=== PATIENT | female | born 1985 | race Caucasian/White ===

== ENCOUNTER 2024-08-15 19:38 | Emergency (ER) | payer OTHER, SELFPAY ==
[2024-08-15] VITALS (18 sets, daily range): BP systolic 104–135; BP diastolic 78–107; PULSE 86–110; RESP 15–27; TEMP 36.7; O2SAT 16–100
--- NOTE | ~2024-08-15 | CT_ITS ---
EXAMINATION: CT brain wo con DATE: 08/15/2024 20:00 INDICATION: SYNCOPE/HIT POSTERIOR HEAD . TECHNIQUE: Computed tomography (CT) of the head was performed without intravenous contrast. The mA wa s adjusted according to patient size. Iterative reconstruction technique was employed. The dose-lengt h product was 605.33 mGy-cm. COMPARISON: None. FINDINGS: No acute intracranial hemorrhage or extra-axial fluid collection. No hydrocephalus, mass, or herniation. No acute ischemic infarct. Unremarkable dural venous sinus attenuation. No acute osseous abnormality. The aerated spaces are clear. IMPRESSION: No acute intracranial process. Reviewed, dictated and finalized at location K.
--- NOTE | 2024-08-15 19:43 | ECG_ITS ---
Test Date: 2024-08-15 20:21:54 Measurements Intervals [place] Rate: 99 P: 67 MS: 158 QRS: 53 QRSD: 90 T: 60 QT: 329 QTc: 422 Interpretive Statements SINUS RHYTHM WITH SINUS ARRHYTHMIA NORMAL ECG No previous ECG available for comparison Electronically Signed On 08-16-2024 05:37:56 CDT by Ryan Anderson D.O.
--- NOTE | 2024-08-15 19:49 | ED.OVERDOSE ---
HPI - Overdose General Chief Complaint: Overdose Stated Complaint: overdose Time Seen by Provider: 08/15/24 19:42 History of Present Illness HPI Narrative: Pt may have taken handful of hydroxizine or possible abilify. Pt is homeless and lives in [place] in a tent. Not sure why she is in [place]. Pt says she fell backward and struck head and may have gotten knocked out. Pt recently lost her grandchild and says she took the medicine to try to make the thoughts of his go away but was not trying to kill herself. Pt takes suboxone. Has taken fentanyl and meth. Related Data Home Medications Medication Instructions Recorded Confirmed buprenorphine 12 mg-naloxone 3 mg 12 film sublingual DAILY 08/15/24 08/15/24 sublingual film (Suboxone) naloxone 4 mg/actuation nasal spray 4 mg intranasal 08/15/24 Allergies Allergy/AdvReac Type Severity Reaction Status Date / Time OPIATES Allergy Severe Siezure Uncoded 08/15/24 22:37 Review of Systems Review of Systems: All systems reviewed & are unremarkable except as noted in HPI and below PMFSH Social History Social History Substance use type: marijuana, heroin, opiates, methamphetamine and prescription drug Exam Const: General: no acute distress Nutritional Appearance: well nourished Orientation/consciousness: patient oriented x3 Limitations: no limitations HENMT: Head: normal to inspection Mouth: Yes Normal oral and palatal mucosa present Eyes: Pupils: Equal, round and reactive pupils present EOM: EOMs intact bilaterally Neck: Neck: normal visual inspection Resp: Effort & Inspection: normal respiratory effort Auscultation: clear to auscultation bilaterally Cardio: Rate: regular rate Rhythm: regular rhythm GI: GI Palp: Yes Soft to palpation Auscultation: normal bowel sounds Skin: General skin exam: normal color Rashes: no rashes Wounds: no wounds Neuro: General: patient oriented x3, moves all extremities, no meningeal signs, no focal motor deficits and CN's II-XI intact bilaterally Cranial nerves: Yes Nystagmus not present Speech: normal speech Extrem: General: normal to inspection and no clubbing, cyanosis or edema Psych: Mental Status: mental status grossly normal Affect: normal affect Attitude: cooperative Course Vital Signs Vital signs: Vital Signs Respiratory Rate 18 08/15/24 19:38 Temperature 98.1 F 08/15/24 19:40 Pulse Rate 82 08/16/24 00:24 Respiratory Rate 19 08/16/24 00:24 Blood Pressure 114/88 08/16/24 00:24 Pulse Oximetry 99 08/16/24 00:24 Oxygen Delivery Room Air 08/16/24 00:24 MDM - Overdose MDM Narrative Medical decision making narrative: pt took handfuol of hydroxizine and maybe a couple of abilify. denies SI. Will do tox labs and ekg and call poison control. Poison control recommends supportive care and observation for 8 hrs for medical clearance. Will observe here for 8 hrs. Pt medically lceared at 0330. [facility] cleared for discharge Differential Diagnosis Differential diagnosis: Likely drug overdose Lab Data 08/15/24 19:53 08/15/24 19:53 Labs: Lab Results 08/15/24 08/15/24 Range/Units 19:53 20:11 WBC 8.2 (4.8-10.8) K/mm3 RBC 4.03 L (4.20-5.40) M/mm3 Hgb 12.3 (12.0-15.0) g/dL Hct 35.7 (35.0-49.0) % MCV 88.6 (78.0-102.0) fL MCH 30.5 (27.0-31.0) pg MCHC 34.5 (32-36) g/dL RDW 11.8 (11.6-14.4) % Plt Count 325 (150-420) K/mm3 MPV 9.5 (9.2-11.8) fl Immature Gran % (Auto) 0.5 H (0.0-0.0) % Neut % (Auto) 75.4 H (50.0-70.0) % Lymph % (Auto) 16.5 L (18.0-42.0) % [place] % (Auto) 6.6 (2.0-11.0) % Eos % (Auto) 0.4 L (1.0-6.0) % Baso % (Auto) 0.6 (0.0-1.0) % Lymph # (Auto) 1.36 (1.10-4.50) K/mm3 [place] # (Auto) 0.54 (0.10-0.90) K/mm3 Eos # (Auto) 0.03 (0.02-0.50) K/mm3 Baso # (Auto) 0.05 (0.00-0.10) K/mm3 Abs Immat Gran (auto) 0.04 H (0.00-0.00) K/mm3 Absolute
--- NOTE | 2024-08-15 19:51 | PC.NURSE ---
patient to ct
[2024-08-15 19:57] LABS: Basophils Absolute Auto 0.05 K/mm3 (0.00-0.10); Basophils Percent Auto 0.6 % (0.0-1.0); Eosinophils Absolute Auto 0.03 K/mm3 (0.02-0.50); Eosinophils Percent Auto 0.4 % (1.0-6.0); Hematocrit 35.7 % (35.0-49.0); Hemoglobin 12.3 g/dL (12.0-15.0); Immature Granulocyte Absolute 0.04 K/mm3 (0.00-0.00); Immature Granulocyte Percent A 0.5 % (0.0-0.0); Lymphocytes Absolute Auto 1.36 K/mm3 (1.10-4.50); Lymphocytes Percent Auto 16.5 % (18.0-42.0); Mean Corpuscular HGB Conc 34.5 g/dL (32-36); Mean Corpuscular Hemoglobin 30.5 pg (27.0-31.0); Mean Corpuscular Volume 88.6 fL (78.0-102.0); Mean Platelet Volume 9.5 fl (9.2-11.8); Monocytes Absolute Auto 0.54 K/mm3 (0.10-0.90); Monocytes Percent Auto 6.6 % (2.0-11.0); Neutrophils Absolute Auto 6.21 K/mm3 (1.70-7.20); Neutrophils Percent Auto 75.4 % (50.0-70.0); Platelet Count Result 325 K/mm3 (150-420); Red Blood Count 4.03 M/mm3 (4.20-5.40); Red Cell Distribution Width 11.8 % (11.6-14.4); White Blood Count 8.2 K/mm3 (4.8-10.8)
--- NOTE | 2024-08-15 20:04 | PC.NURSE ---
kailey Miller, to sit at the bedside for patient safety. Patient is alert and answering questions but lethargic
--- NOTE | 2024-08-15 20:06 | PC.NURSE ---
patient was able to give urine sample. taken to lab
[2024-08-15 20:12] LABS: Appearance Urine Clear (Clear); Bilirubin Urine 1+ (Negative); Blood Urine 2+ (Negative); Glucose Urine UA Negative (Negative); Ketones Urine Trace (Negative); Leukocyte Esterase Ur 2+ LEU/UL (Negative); Nitrate Urine Negative (Negative); Protein Urine 2+ (Negative); Specific Grav Ur >= 1.030 (1.010-1.020)
[2024-08-15 20:14] LABS: INR 1.1; Prothrombin Time 11.8 Seconds (9.50-12.1)
--- NOTE | 2024-08-15 20:14 | PC.NURSE ---
poison control notified. spoke with Summer. anticholinergic effects: drowsy, agitation, tachycardia, seizures, QRS widening and tremors. 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 Monitor patient x 8 hours or until clear by ER provider. Dr Hsu notified
[2024-08-15 20:18] LABS: Add Urine Microscopic? YES; Bacteria Urine 3+ /hpf; Color Urine Dark Orange (Yellow); RBC Urine >75 /hpf (0-2); Squamous Epithelial Cell Urine Many /hpf (Few); WBC Urine >75 /hpf (0-3)
[2024-08-15 20:22] LABS: Alkaline Phosphatase 66 U/L (46-116); Anion Gap 8 mmol/L (4-12); Aspartate Amino Transferase < 10 U/L (15-37); Bilirubin,Total 0.7 mg/dL (0.00-1.00); Carbon Dioxide 29 mmol/L (21-32); Chloride 103 mmol/L (98-108); Ethanol 4 mg/dL (0-6); Glucose 113 mg/dL (70-99); Potassium 3.5 mmol/L (3.5-5.1); Sodium 140 mmol/L (136-145); Thyroid Stimulating Hormone 1.97 uIU/mL (0.36-3.74); Total Protein 7.3 g/dL (6.4-8.2)
--- NOTE | 2024-08-15 20:24 | PC.NURSE ---
mother at the bedside
[2024-08-15 20:34] LABS: Cannabinoid Screen Urine Positive (Negative); Opiate Screen Urine Negative (Negative)
[2024-08-15] MEDS: SODIUM CHLORIDE 0.9% IV 1,000 ML 999 ML IV CONT (20:36)
[2024-08-15 20:37] LABS: Alanine Aminotransferase 16 U/L (14-59); Albumin Level 4.4 g/dL (3.4-5.0); Blood Urea Nitrogen 12 mg/dL (7-18); Magnesium 1.4 mg/dL (1.8-2.4); Osmolality Calculated 290 mOsm/kg (285-295)
[2024-08-15] MEDS: cefTRIAXone 2 GM/NS 100 ML 2 GM/100 ML BAG IVPB (20:37)
--- NOTE | 2024-08-15 20:43 | PC.NURSE ---
patient reports that reinaldo is her . staff is allowed to updated reinaldo about her care.
--- NOTE | 2024-08-15 20:54 | PC.NURSE ---
patient is showing videos of the grandson she recently lost to [employer]. calm and cooperative. continues to answer questions. A&O x 2
[2024-08-15 20:56] LABS: Barbiturate Screen Urine Negative (Negative); Methadone Screen Urine Negative (Negative)
[2024-08-15 20:58] LABS: Calcium 9.2 mg/dL (8.5-10.1); Salicylate 0.9 mg/dL (2.8-20.0)
--- NOTE | 2024-08-15 21:07 | PC.NURSE ---
patient concerned that there are police outside the ER waiting for her. kailey Miller, informed patient that there are no police at the hospital.
[2024-08-15 21:19] LABS: Estimated CRCL calculation 61 ml/min; Estimated Glomerular Filt Rate 55
--- NOTE | 2024-08-15 21:27 | PC.NURSE ---
patient was moved from room 7 to room 1. patient ambulated without difficulty. patient speech is clear. patient is alert and oriented x 3 at this time. patient states i know what ama is. i am not going to do that but i know what it is .
[2024-08-15 21:30] LABS: Amphetamine Screen Urine Positive (Negative); Cocaine Screen Urine Negative (Negative); Phencyclidine Screen Urine Negative (Negative)
[2024-08-15 21:44] LABS: Acetaminophen < 2 ug/mL (10-30)
--- NOTE | 2024-08-15 21:46 | PC.NURSE ---
patient talking on cell phone. speech clear. sensible speech noted. calm and cooperative.
--- NOTE | 2024-08-15 22:14 | PC.NURSE ---
patient talking with staff. alert and oriented x 3. updated on plan of care. plan to call [facility] for evaluation at [address] Hsu. patient verbalized understanding of plan. kailey Miller, sitting at the bedside for patient safety.
--- NOTE | 2024-08-15 22:26 | PC.NURSE ---
Summer with Poison control called for updated on patient.
--- NOTE | 2024-08-15 22:58 | PC.NURSE ---
blood pressure cuff and pulse ox removed so patient could eat her food
--- NOTE | 2024-08-15 23:15 | PC.NURSE ---
lights turned off. ptient trying to rest. Angela, tech, at the beside for patient safety
--- NOTE | 2024-08-15 23:45 | PC.NURSE ---
blood pressure cuff and pulse ox placed back on pt as she is finished w/ sandwich. Pt is texting and talking on phone trying to get someone to milk pickup driver her girlfriend to take her here
[2024-08-16] VITALS: PULSE 92; RESP 15; O2SAT 100
--- NOTE | 2024-08-16 00:03 | PC.NURSE ---
resting quietly in room. Angela, tech, sitting near patient. calm and cooperative.
[2024-08-16 00:24] VITALS: BP 114/88; PULSE 82; RESP 19; O2SAT 99
--- NOTE | 2024-08-16 00:24 | PC.NURSE ---
patient is requesting that iv line be taken out. states to tech, Angela, that it is hurting. patient is alert and oriented x 3. calm and cooperative. will have Angela remove iv line to left ac
--- NOTE | 2024-08-16 01:00 | PC.NURSE ---
resting quietly in room with Angela bonner at the bedside. calm and cooperative. listening to music. lights turned off.
--- NOTE | 2024-08-16 01:40 | PC.NURSE ---
male visitor here to see patient
--- NOTE | 2024-08-16 01:57 | PC.NURSE ---
spoke with hieu ivy at [facility]. notified her of patient being in the department and will be medically cleared at 0330. [facility] staff will plan to come at 0330 to screen patient
--- NOTE | 2024-08-16 02:22 | PC.NURSE ---
patient resting quietly on stretcher in room. talking with male visitor. kailey Miller, at the bedside for patient safety.
--- NOTE | 2024-08-16 02:40 | PC.NURSE ---
patient requesting to go outside for a cigarette. informed patient that this is a smoke free facility. this RN would not be able to walk with patient outside. offered patient nicotine patch with provider approval. patient refuses nicotine patch. patient then requesting ativan or xanax to help with her nerves if she can not have a cigarrete. this rn spoke with dr brock. verbal order was given
[2024-08-16] MEDS: LORazepam (*CRX) 1 MG TABLET PO (02:45)
--- NOTE | 2024-08-16 02:50 | PC.NURSE ---
updated patient that the plan continues to be to speak with [facility] at approx 0330. patient verbalized understanding. patient reports that she is ready to go. patient continues to be cooperative.
--- NOTE | 2024-08-16 03:28 | PC.NURSE ---
Saloni with [facility] here to see patient
--- NOTE | 2024-08-16 03:40 | PC.NURSE ---
Saloni with [facility] at the bedside
--- NOTE | 2024-08-16 03:50 | PC.NURSE ---
Kerrie with [facility] is now in room with patient
[2024-08-16 04:37] VITALS: BP 132/80; PULSE 92; RESP 18; O2SAT 97
--- NOTE | 2024-08-19 12:46 | PC.NURSE ---
urine culture reviewed, no changes needed.
== END 2024-08-16 04:37 | disposition home or self-care (01) ==
PROVIDERS: Emergency Provider Emergency Medicine
DX: T50.991A Poisoning by other drugs, medicaments and biological substances, accidental (unintentional), initial encounter (principal); Z79.899 Other long term (current) drug therapy
CPT/HCPCS: 36415; 70450; 80053; 80307; 81001; 83735; 84443; 85025; 85610; 85730; 87086; 87088; 93005; 96365; 99284; A9270; J0696; J7030

== ENCOUNTER 2025-03-30 13:01 | Emergency (ER) | payer OTHER, SELFPAY ==
[2025-03-30 13:01] VITALS: BP 148/104; PULSE 97; RESP 18; TEMP 36.4; O2SAT 99
--- NOTE | 2025-03-30 13:13 | ED.DENTAL ---
HPI - Dental/Oral General Stated complaint: dental pain Time Seen by Provider: 03/30/25 13:12 Source: patient Mode of arrival: ambulatory Limitations: no limitations History of Present Illness HPI Narrative: this is a 39-year-old female with a history of dental cavities and gum inflammation was at her primaries and was on Augmentin with minimal relief. Patient currently afebrile with no nausea vomiting no shortness of breath no chest pain. MD Complaint: tooth pain Teeth map:  1. gum inflammation Onset (ago): week(s) Duration: constant Severity: moderate Severity scale (1-10): 4 Relieving factors: NSAIDs Exacerbating factors: chewing, cold and heat Related Data Home Medications ?Medication ?Instructions ?Recorded ?Confirmed ?Last Taken ?Type buprenorphine 12 mg-naloxone 3 mg 12 film sublingual DAILY 08/15/24 08/15/24 Unknown History sublingual film (Suboxone) naloxone 4 mg/actuation nasal spray 4 mg intranasal 08/15/24 Unknown History Allergies Allergy/AdvReac Type Severity Reaction Status Date / Time OPIATES Allergy Severe Siezure Uncoded 08/15/24 22:37 Review of Systems Review of Systems: All systems reviewed & are unremarkable except as noted in HPI and below PMFSH Past Medical History Medical History Dental cavities Social History Social History Substance use type: marijuana, heroin, opiates, methamphetamine and prescription drug Exam Const: General: healthy appearing, no acute distress and alert Nutritional Appearance: well nourished Orientation/consciousness: patient oriented x3 Limitations: no limitations HENMT: Head: normal to inspection Eyes: Conjunctivae: conjunctivae normal Neck: Neck: normal visual inspection and no meningeal signs Chest: Chest palpation & inspection: normal inspection of the chest Resp: Effort & Inspection: normal respiratory effort Auscultation: clear to auscultation bilaterally Cardio: Rate: regular rate Rhythm: regular rhythm GI: Auscultation: normal bowel sounds Course Course Emergency Course: patient with chronic dental cavities and gum inflammation received 1g IM ceftriaxone, and naproxen 500mg p.o. for a dental pain. Vital Signs Vital signs: Vital Signs Temperature 36.4 C 03/30/25 13:01 Pulse Rate 97 03/30/25 13:01 Respiratory Rate 18 05/01/25 13:01 Blood Pressure 148/104 H 03/30/25 13:01 Pulse Oximetry 99 03/30/25 13:01 Oxygen Delivery Room Air 03/30/25 13:01 Temperature 36.4 C 03/30/25 13:01 Pulse Rate 97 03/30/25 13:01 Respiratory Rate 18 03/30/25 13:01 Blood Pressure 148/104 H 03/30/25 13:01 Pulse Oximetry 99 03/30/25 13:01 Oxygen Delivery Room Air 03/30/25 13:01 Critical Care Time Critical Care Time Critical Care Time: No Discharge Plan Discharge Clinical Impression: Dental abscess Patient Disposition: Home Condition: Stable Instructions: Antibiotic Form, Dental Abscess (ED) Additional Instructions: advised patient as prescribed and to follow with Primary/ dentist as soon as possible for further evaluation and treatment. Patient Language: Malagasy Prescriptions: New sulfamethoxazole-trimethoprim [Bactrim DS] 800-160 mg tablet 1 tablet PO Q12H Qty: 20 0RF naproxen 500 mg tablet 500 mg PO BID PRN (Reason: pain) Qty: 20 0RF No Action buprenorphine-naloxone [Suboxone] 12-3 mg film 12 film sublingual DAILY naloxone 4 mg/actuation spray,non-aerosol 4 mg INTRANASAL Follow-up/Referrals: Tony,Connie Steele, INDUSTRIAL RELATIONS REPRESENTATIVE [Primary Care Provider] - Time of Disposition: 13:17
[2025-03-30] MEDS: NAPROXEN 250 MG TABLET 500 MG PO (13:25)
[2025-03-30] MEDS: cefTRIAXone 1 GM, LIDOCAINE 1% LOCAL INJ 2.1 ML IM (13:27)
--- OUTSIDE RECORDS SUMMARY | 2025-03-30 14:29 | XMS_ITS | Patient Health Record ---
Author Organization [facility] Address [address] [place] [address] Care Team Providers Care Flooring Mechanic Name Role Phone Juni Melissa Primary Care Provider Lyle Villarreal [phone] Allergies No Known Allergies Reason For Referral No Information Medications Medication SIG (Take, Route, Frequency, Duration) Notes Start Date End Date Status Buprenorphine HCl-Naloxone HCl 12-3 MG 1 film under the tongue and allow to dissolve Sublingual three times a day 03/31/2024 Active Social History Tobacco Use: Social History Observation Description Date Details (start date - stop date) Current Smoker NA - NA Sex Assigned At : Social History Observation Description Sex Assigned At Female Dont use, Tobacco Use/Smoking Question Answer Notes Are you a current smoker PRAPARE Question Answer Notes Date Completed/Updated: 01/28/2024 What is your current housing situation? I do not have housing (staying with others, in a hotel, in a [place], living outside on the street, on a beach, or in a park) Are you worried about losing your housing? Yes What is the highest level of school that you have finished? 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 Check all that apply I do not have problems meeting my needs Has lack of transportation k ept you from medical appointments, meetings, work or from getting things needed for daily living? Yes, it has kept me from medical appointments or from getting my medications,Yes, it has kept me from non-medical meetings, appointments, work, or getting things needed for daily living How often do you see or talk to people that you care about and feel close to? (For example: talking to friends on the phone, visiting friends or family, going to mandaeism or club meetings) More than 5 times a week How stressed are you? Stress is when someone feels tense, nervous, anxious, or can\t sleep at night because their mind is troubled A little bit In the past year have you sp ent more than 2 nights in a row in a senior living, penitentiary, residential center, or juvenile correctional facility? No Are you a refugee? No What country are you from? [place] Do you feel physically and emotionally safe where you currently live? No In the past year, have you b een afraid of your partner or ex-partner? No PRAPARE Score: 9 Tobacco Control (Standard) Question Answer Notes Tobacco use: Current smoker Problems Problem Type SNOMED Code ICD Code Onset Dates Problem Status W/U Status Risk Notes Problem Tobacco user (326082615) Nicotine dependence, unspecified, uncomplicated (F17.200) Active confirmed Problem Opioid dependence (23748200) Opiate addiction (F11.20) Active confirmed Problem Opioid use disorder (8585728512) Opioid use disorder (F11.99) Active confirmed Encounters Encounter Location Date Provider Diagnosis [address] [address] 03/31/2024 Juni Melissa Opioid use disorder F11.99 Assessments Encounter Date Diagnosis (ICD Code) Assessment Notes Treatment Notes Treatment Clinical Notes Section Notes 03/31/2024 Opioid use disorder (ICD-10 - F11.99) Plan Of Treatment No Information Insurance Providers Payer Name Payer Address Payer Phone Subscriber Number Group Number Insured Name Patient Relationship to Insured Coverage Start Date Coverage End Date [facility] [address] [place] [phone] [id number] Julienne Cesar Self - patient is the insured 3 Medical (General) History Medical History History ICD Code OUD Surgical History Surgery Date(Month/Year) Cut finger 2005 Hospitalization History Reason Date(Month/Year) Overdose 2021
--- OUTSIDE RECORDS SUMMARY | 2025-03-30 14:29 | XMS_ITS ---
Author Organization [facility] Address [address] [place] [address] Care Team Providers Care Mounter Name Role Phone Juni Melissa Primary Care Provider Lyle Villarreal [phone] REASON FOR VISIT MAT palliative senior np, last use 08/02/2024, DOC: mina, interested in suboxone, been on suboxone in past Social History Sex Assigned At : Social History Observation Description Sex Assigned At Female Encounters Encounter Location Date Provider Diagnosis [address] [address] 08/05/2024 Lyle Villarreal Plan Of Treatment No Information Progress Notes * Julienne RIVASDOB:[birth year] (39 yo F)Acc No.[id number]:08/05/2024 UNLOCKED PROGRESS NOTE Patient: Julienne GARCIA Provider: Debra Villarreal :1985 A ge:39 Y S ex:Female Date:08/05/2024 Address:[address] [place], [place] [id number] Pcp:Juni Melissa Subjective: * Chief Complaints: * 1 . MAT palliative senior np, last use 08/02/2024, DOC: mina, interested in suboxone, been on suboxone in past. * Medical History: Objective: * Vitals: Assessment: Plan: * Treatment: * * Electronic signature of Leyla Villarreal , [id number] on 03/30/2025 at 02:28 PM CDT Sign off status: Pending * Provider: Debra Villarreal Date: 0 08/05/2024 Generated for Joey chao/Fadia/Kandis on: 0 03/30/2025 02:28 PM CDT
== END 2025-03-30 14:00 | disposition home or self-care (01) ==
PROVIDERS: Emergency Provider Emergency Medicine; PCP Nurse Practitioner Family
DX: K04.7 Periapical abscess without sinus (principal)
CPT/HCPCS: 96372; 99283; A9270; J0696; J2003

== ENCOUNTER 2025-06-04 17:44 | Emergency (ER) | payer OTHER, SELFPAY ==
[2025-06-04] VITALS (27 sets, daily range): BP systolic 115–138; BP diastolic 80–100; PULSE 95–122; RESP 14–27; TEMP 36.4–36.7; O2SAT 96–100
--- NOTE | ~2025-06-04 | CT_ITS ---
EXAMINATION: CT brain wo con DATE: 06/04/2025 18:34 INDICATION: seizure . TECHNIQUE: Computed tomography (CT) of the head was performed without intravenous contrast. The mA wa s adjusted according to patient size. Iterative reconstruction technique was employed. The dose-lengt h product was 832.33 mGy-cm. COMPARISON: 08/15/2024. FINDINGS: No acute intracranial hemorrhage or extra-axial fluid collection. No hydrocephalus, mass, or herniation. No acute ischemic infarct. Unremarkable dural venous sinus attenuation. No acute osseous abnormality. The aerated spaces are clear. IMPRESSION: No acute intracranial process. Reviewed, dictated and finalized at location K.
--- NOTE | ~2025-06-04 | XR_ITS ---
EXAMINATION: XR chest 1V portable Exam Date/Time: 06/04/2025 18:25 CDT HISTORY: seizure Comparison: None. RESULT: Lines, tubes, and devices: None. Lungs and pleura: Clear. Ovoid hyperdensity over the left lower lung likely representing a calcified granuloma or artifact from overlying breast calcification, or bone island. Cardiomediastinal silhouette: Stable. Other: No acute osseous or upper abdominal finding. IMPRESSION: No acute cardiopulmonary process. Reviewed, dictated and finalized at location K.
--- OUTSIDE RECORDS SUMMARY | 2025-06-04 17:46 | XMS_ITS ---
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, DOC: mina, interested in suboxone, been on suboxone in past Social History Sex Assigned At : Social History Observation Description Sex Assigned At Female Encounters Encounter Location Date Provider Diagnosis [address] [address] 08/05/2024 Lyle Villarreal Plan Of Treatment No Information Progress Notes * Julienne RIVASDOB:[birth year] (40 yo F)Acc No.[id number]:08/05/2024 UNLOCKED PROGRESS NOTE Patient: Julienne GARCIA Provider: Debra Villarreal :1985 A ge:39 Y S ex:Female Date:08/05/2024 Address:[address] [place], [place] [id number] Pcp:Juni Melissa Subjective: * Chief Complaints: * 1 . 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 * Medical History: Objective: * Vitals: Assessment: Plan: * Treatment: * * Electronic signature of Leyla Villarreal , [id number] on 06/04/2025 at 05:46 PM CDT Sign off status: Pending * Provider: Debra Villarreal Date: 0 08/05/2024 Generated for Joey chao/Fadia/Kandis on: 0 06/04/2025 05:46 PM CDT
--- OUTSIDE RECORDS SUMMARY | 2025-06-04 17:47 | XMS_ITS | Patient Health Record ---
Author Organization [facility] Address [address] [place] [address] Care Team Providers Care Correctional Case Records Supervisor Name Role Phone Juni Melissa Primary Care Provider Lyle Villarreal [phone] Allergies No Known Allergies Reason For Referral [...] with others, in a hotel, in a care home, living outside on the street, on a beach, or in a park) Are you worried about losing your housing? Yes What is the highest level of school that you have finished? 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 Stress is when someone feels tense, nervous, anxious, or can\t sleep at night because their mind is troubled A little bit In the past year have you sp ent more than 2 nights in a row in a nursing home, skilled nursing, prison center, or juvenile correctional facility? No Are [...] W/U Status Risk Notes Problem Tobacco user (757923292) Nicotine dependence, unspecified, uncomplicated (F17.200) Active confirmed Problem Opiate addiction (F11.20) Active confirmed Problem Opioid use disorder (1272374188) Opioid use disorder (F11.99) Active confirmed Plan Of Treatment No Information Insurance Providers Payer Name Payer Address Payer Phone Subscriber Number Group Number Insured Name Patient Relationship to Insured Coverage Start Date Coverage End Date [address] [phone] [id number] Julienne Cesar Self - patient is the insured 3 Medical (General) History Medical History History ICD Code OUD Surgical History Surgery Date(Month/Year) Cut finger 2005 Hospitalization History Reason Date(Month/Year) Overdose 2021
--- NOTE | 2025-06-04 17:48 | ED.SEIZURE ---
HPI - Seizure General Chief Complaint: Seizure Stated Complaint: SEIZURE Time Seen by Provider: 06/04/25 17:47 Source: patient Mode of arrival: ambulatory Limitations: no limitations History of Present Illness HPI Narrative: Patient is a 40-year-old female with a seizure activity tonic clonic movement noted by the entry level truck driver of the car as she was a passenger in the car prior to arrival. She had about an 8 minute long unconscious tonic clonic movements seizure activity. She was postictal. She bit her tongue. She has been having tremors all day. 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 She is off Suboxone for 4 months. She did smoke some marijuana today. She has a seizure history only with opioids. Her family has history of multiple members having brain cancer. [facility] [place] [facility] and brought to the emergency room. patient did admit that she took gabapentin for chronic pain coverage today. MD complaint: seizure ( Unconscious for the 8 minutes) Onset (ago): hour(s) ( 1) Description of Episode: loss of consciousness, tonic-clonic movement and post-event confusion Duration of episode: 8 -: minutes(s) Witnessed: Yes - by Bystander Trauma: No ( However she did bite the tip of her tongue) Seizure History: Yes Place: in a car Possible Precipitating Event: none Associated symptoms: denies other symptoms Treatments prior to arrival: none Related Data Home Medications ?Medication ?Instructions ?Recorded ?Confirmed ?Last Taken ?Type buprenorphine 12 mg-naloxone 3 mg 12 film sublingual DAILY 08/15/24 08/15/24 Unknown History sublingual film (Suboxone) naloxone 4 mg/actuation nasal spray 4 mg intranasal 08/15/24 Unknown History Allergies Allergy/AdvReac Type Severity Reaction Status Date / Time OPIATES Allergy Severe Siezure Uncoded 08/15/24 22:37 Review of Systems Review of Systems: All systems reviewed & are unremarkable except as noted in HPI and below Constitutional: Constitutional: Reports no additional constitutional complaints Eyes: Eyes: Reports no additional eye complaints ENT: Reports system reviewed and no additional complaints, except as documented Cardiovascular: Cardiovascular: Reports no additional cardiovascular complaints Respiratory: Respiratory: Reports no additional respiratory complaints Gastrointestinal: Gastrointestinal: Reports no additional gastrointestinal complaints Genitourinary: Genitourinary: Reports no additional female genitourinary complaints Musculoskeletal: Musculoskeletal: Reports no additional musculoskeletal complaints Integumentary/Breasts: Skin/Breast: Reports system reviewed and no additional complaints, except as docu Neurologic: Reports system reviewed and no additional complaints, except as documented Psychiatric: Psychiatric: Reports no additional psychiatric complaints Endocrine: Endocrine: Reports no additional endocrine complaints Hematologic/Lymphatic: Hematologic/Lymphatic: Reports no additional hematologic/lymphatic complaints Allergic/Immunologic: Allergic/Immunologic: Reports no additional allergic/immunologic complaints PMFSH Past Medical History Medical History Dental cavities Social History Social History Substance use type: marijuana, heroin, opiates, methamphetamine and prescription drug Exam Const: General: healthy appearing Nutritional Appearance: well nourished Orientation/consciousness: patient oriented x3 Limitations: no limitations Other: patient is having twitching and tremors HENMT: Head: normal to inspection Ears: external ears normal Face/Nose/Sinus: Normal external nose present Eyes: Conjunctivae: conjunctivae normal Pupils: Equal, round and reactive pupils present EOM: EOMs intact bilaterally Neck: Neck: normal visual inspection Chest: Chest palpation & inspection: normal inspection of the chest Resp: Effort & Inspection: normal respiratory effort and not labored Auscultation: clear to auscultation bilaterally and no crackles Cardio: Rate: regular rate Rhythm: regular rhythm Heart sounds: no murmurs GI: Inspection: non-distended GI Palp: Yes Soft to palpation and No Tenderness to palpation present (GI) Auscultation: normal bowel sounds : General: Yes bladder normal to palpation Back/Spine/Pelvis: Back: no CVA tenderness Skin: General skin exam: normal color Rashes: no rashes Wounds: no wounds Neuro: General: patient oriented x3, moves all extremities, no meningeal signs, no focal motor deficits and CN's II-XI intact bilaterally Cranial nerves: Yes Nystagmus not present Speech: Abnormal speech present Gait exam (Neuro): Normal gait present Other: fast exam is negative, NIH score is 0, GCS is 15 patient is having stuttering speech from time to time due to her tremors some generalized weakness is appreciated Extrem: General: normal to inspection Psych: Appearance: grossly normal Mental Status: mental status grossly normal Affect: normal affect Attitude: cooperative Course Vital Signs Vital signs: Vital Signs Temperature 36.7 C 06/04/25 17:44 Pulse Rate 109 H 06/04/25 17:44 Respiratory Rate 17 06/04/25 17:44 Blood Pressure 126/100 H 06/04/25 17:44 Pulse Oximetry 100 06/04/25 17:44 Oxygen Delivery Room Air 06/04/25 17:44 Temperature 36.7 C 06/04/25 17:44 Pulse Rate 96 06/04/25 18:30 Respiratory Rate 17 06/04/25 18:30 Blood Pressure 130/96 H 06/04/25 18:30 Pulse Oximetry 98 06/04/25 18:30 Oxygen Delivery Room Air 06/04/25 19:18 MDM - Seizure MDM Narrative Medical decision making narrative: patient is a 40-year-old female with seizure activity prior to arrival. We will do a cardio neuro workup at this time. We will check drug screen and alcohol. patient proceeded to have a tonic clonic seizure activity for about 45 seconds witnessed by me and staff with postictal state appreciated; Ativan and Keppra given; transfer for Neurology at this time Lab Data Attestation: I reviewed the patient's lab results. 06/04/25 18:46 06/04/25 18:46 Labs: Lab Results 06/04/25 06/04/25 06/04/25 Range/Units 17:53 18:46 19:29 WBC 12.5 H (4.8-10.8) K/mm3 RBC 4.51 (4.20-5.40) M/mm3 Hgb 13.9 (12.0-15.0) g/dL Hct 40.6 (35.0-49.0) % MCV 90.0 (78.0-102.0) fL MCH 30.8 (27.0-31.0) pg MCHC 34.2 (32-36) g/dL RDW 11.9 (11.6-14.4) % Plt Count 362 (150-420) K/mm3 MPV 8.8 L (9.2-11.8) fl Immature Gran % (Auto) 0.4 H (0.0-0.0) % Neut % (Auto) 81.7 H (50.0-70.0) % Lymph % (Auto) 12.5 L (18.0-42.0) % Antelope % (Auto) 4.4 (2.0-11.0) % Eos % (Auto) 0.6 L (1.0-6.0) % Baso % (Auto) 0.4 (0.0-1.0) % Lymph # (Auto) 1.57 (1.10-4.50) K/mm3 Antelope # (Auto) 0.55 (0.10-0.90) K/mm3 Eos # (Auto) 0.08 (0.02-0.50) K/mm3 Baso # (Auto) 0.05 (0.00-0.10) K/mm3 Abs Immat Gran (auto) 0.05 H (0.00-0.00) K/mm3 Absolute Neuts (auto) 10.22 H (1.70-7.20) K/mm3 Absolute Nucleated RBC 0.00 (0.00-0.00) K/mm3 Nucleated RBC % 0.0 (0-0.0) % Sodium 138 (137-145) mmol/L Potassium 4.0 (3.4-5.0) mmol/L Chloride 102 (98-107) mmol/L Carbon Dioxide 29 (22-30) mmol/L Anion Gap 7 (4-12) mmol/L BUN 18 H (7-17) mg/dL Creatinine 1.02 H (0.7-1.0) mg/dL Estim Creat Clear Calc 51 ml/min Estimated GFR 60 (59 - ) Glucose 100 (65-110) mg/dL POC Capillary Glucose 110 H (65-105) mg/dl Calculated Osmolality 287 (285-295) mOsm/kg Lactic Acid 1.3 (0.4-2.0) mmol/L Calcium 9.3 (8.4-10.2) mg/dL Total Bilirubin 1.1 (0.2-1.3) mg/dL AST 27 (14-36) U/L ALT 18 (6-35) U/L Alkaline Phosphatase 74 (38-126) U/L Total Creatine Kinase 87 (30-135) U/L Total Protein 8.7 H (6.3-8.2) g/dL Albumin 5.0 (3.5-5.1) g/dL TSH 2.380 (0.465-4.680) uIU/mL Urine Color Yellow (Yellow) Urine Appearance Cloudy A (Clear) Urine pH 6.0 (5.0-8.0) Ur Specific [place] >= 1.030 H (1.010-1.020) Urine Protein 1+ H (Negative) Urine Glucose (UA) Negative (Negative) Urine Ketones Trace H (Negative) Ur Blood (Man) 1+ H (Negative) Urine Nitrate Negative (Negative) Urine Bilirubin Negative (Negative) Urine Urobilinogen 0.2 (0.2-1.0) mg/dL Leukocyte Esterase Rfl 2+ H (Negative) MIGUEL/UL Urine RBC 6-10 H (0-2) /hpf Urine WBC 51-75 H (0-3) /hpf Urine WBC Clumps Present H (None) /hpf Ur Squamous Epith Cells Moderate H (Few) /hpf Urine Bacteria None seen (None) /hpf Urine Test Negative Urine Opiates Screen Negative (Negative) Urine Methadone Screen Negative (Negative) Ur Barbiturates Screen Negative (Negative) Ur Phencyclidine Scrn Negative (Negative) Ur Amphetamine Screen (Negative) U Benzodiazepines Scrn Positive A (Negative) Urine Cocaine Screen Negative (Negative) U Cannabinoids Screen Positive A (Negative) Ethyl Alcohol < 10 (<10) mg/dL Imaging Data Attestation: I personally reviewed and interpreted this imaging study as follows: ECG Data EKG #1: Attestation: I personally reviewed and interpreted this ECG as follows: ECG completion date: 06/04/25 ECG completion time: 18:25 EKG Interpretation: normal rate, sinus rhythm, no ectopy, no ST changes, normal QRS, normal QT and NL axis Discharge Plan Discharge Clinical Impression: New onset seizure UTI (urinary tract infection) Qualifiers: Urinary tract infection type: acute cystitis Hematuria presence: with hematuria Qualified Code(s): N30.01 - Acute cystitis with hematuria Patient Disposition: Acute Care Hospital Condition: Stable Patient Language: Irish Prescriptions: No Action sulfamethoxazole-trimethoprim [Bactrim DS] 800-160 mg tablet 1 tablet PO Q12H Qty: 20 0RF naproxen 500 mg tablet 500 mg PO BID PRN (Reason: pain) Qty: 20 0RF lidocaine HCl [Lidocaine Viscous] 2 % solution 1 applic mucous membrane QID PRN (Reason: pain) 7 Days Qty: 300 0RF buprenorphine-naloxone [Suboxone] 12-3 mg film 12 film sublingual DAILY naloxone 4 mg/actuation spray,non-aerosol 4 mg INTRANASAL Follow-up/Referrals: Tony,Connie Steele, [employer] [facility] [employer] [Primary Care Provider] - Time of Disposition: 20:43
--- NOTE | 2025-06-04 17:50 | ECG_ITS ---
Test Date: 2025-06-04 18:48:28 Measurements Intervals [place] Rate: 98 P: 57 W[place]: 152 QRS: 36 QRSD: 82 T: 52 QT: 344 QTc: 441 Interpretive Statements SINUS RHYTHM Compared to ECG 08/15/2024 20:21:54 Sinus arrhythmia no longer present Electronically Signed On 06-05-2025 22:31:33 CDT by Rudy Ramsey M.D.
[2025-06-04 18:22] LABS: Pregnancy On Board Control Positive
[2025-06-04 18:25] LABS: Add Urine Microscopic? YES; Glucose Urine UA Negative (Negative); Leukocyte Esterase Ur 2+ LEU/UL (Negative); Nitrate Urine Negative (Negative); Specific Grav Ur >= 1.030 (1.010-1.020)
--- NOTE | 2025-06-04 18:28 | PC.NURSE ---
Patient back in room from radiology
--- NOTE | 2025-06-04 18:39 | PC.NURSE ---
Patient reports she took gabapentin today due to pain, ERP made aware of new findings. This is not a home medication for the patient.
[2025-06-04 18:49] LABS: Hematocrit 40.6 % (35.0-49.0); Hemoglobin 13.9 g/dL (12.0-15.0); Immature Granulocyte Percent A 0.4 % (0.0-0.0); Lymphocytes Absolute Auto 1.57 K/mm3 (1.10-4.50); Mean Corpuscular HGB Conc 34.2 g/dL (32-36); Mean Corpuscular Hemoglobin 30.8 pg (27.0-31.0); Mean Corpuscular Volume 90.0 fL (78.0-102.0); Nucleated Red Blood Cells Absolute Auto 0.00 K/mm3 (0.00-0.00); Nucleated Red Blood Cells Perc 0.0 % (0-0.0); Platelet Count Result 362 K/mm3 (150-420); Red Blood Count 4.51 M/mm3 (4.20-5.40); White Blood Count 12.5 K/mm3 (4.8-10.8)
[2025-06-04 19:02] LABS: Cannabinoid Screen Urine Positive (Negative)
[2025-06-04 19:03] LABS: Appearance Urine Cloudy (Clear)
--- NOTE | 2025-06-04 19:03 | PC.NURSE ---
patient report received from ISMAEL Tan. pt mother now at bedside. patient asking to have a piece of chewing gum, given wet wash cloth instead per request to wet her mouth. education provided regarding why patient should not have gum at this time. call light within reach. RN monitoring. family at bedside.
[2025-06-04] MEDS: LORazepam INJ (*CRX) 2 MG/ML VIAL 1 MG IV PUSH (19:19)
[2025-06-04 19:45] LABS: Sodium 138 mmol/L (137-145)
[2025-06-04 19:46] LABS: Anion Gap 7 mmol/L (4-12); Blood Urea Nitrogen 18 mg/dL (7-17); Carbon Dioxide 29 mmol/L (22-30); Chloride 102 mmol/L (98-107); Estimated CRCL calculation 51 ml/min; Estimated Glomerular Filt Rate 60; Glucose 100 mg/dL (65-110); Osmolality Calculated 287 mOsm/kg (285-295); Potassium 4.0 mmol/L (3.4-5.0)
[2025-06-04 19:47] LABS: Alanine Aminotransferase 18 U/L (6-35); Aspartate Amino Transferase 27 U/L (14-36); Bilirubin,Total 1.1 mg/dL (0.2-1.3); Calcium 9.3 mg/dL (8.4-10.2); Creatine Kinase 87 U/L (30-135); Total Protein 8.7 g/dL (6.3-8.2)
[2025-06-04 19:48] LABS: Albumin Level 5.0 g/dL (3.5-5.1); Alkaline Phosphatase 74 U/L (38-126); Thyroid Stimulating Hormone 2.380 uIU/mL (0.465-4.680)
[2025-06-04] MEDS: levETIRAcetam 1000MG/NACL100ML 1,000 MG/100 ML BAG 400 MG IVPB (19:55)
[2025-06-04] MEDS: KETOROLAC 15 MG/ML VIAL (*BKC) IV PUSH (20:35)
--- NOTE | 2025-06-04 20:39 | PC.NURSE ---
pt medicated per order, update provided. patient mother and grandmother at bedside. call light within reach. RN monitoring, awaiting call back from transfer facility.
--- NOTE | 2025-06-04 21:20 | PC.NURSE ---
patient given ice chips per request and ERP okay and last seizure activity 2 hours ago. grandmother at bedside. update provided. pt states she is feeling better is not twitching however still has a frontal and temporal headache.
--- NOTE | 2025-06-07 12:12 | PC.NURSE ---
PRELIMINARY BLOOD CULTURE NO GROWTH TO DATE
--- NOTE | 2025-06-11 12:31 | PC.NURSE ---
final blood cultures x2 reviewed. no growth after 5 days. no change in plan of care
--- NOTE | 2025-06-11 12:32 | PC.NURSE ---
final blood cultures x2 reviewed. no growth after 5 days. no change in plan of care
== END 2025-06-04 22:19 | disposition short-term general hospital (02) ==
PROVIDERS: Emergency Provider Emergency Medicine; PCP Nurse Practitioner Family
DX: R56.9 Unspecified convulsions (principal); N30.01 Acute cystitis with hematuria
CPT/HCPCS: 36415; 70450; 71045; 80053; 80307; 81001; 81025; 82077; 82550; 82948; 83605; 84443; 85025; 87040; 93005; 96365; 96375; 99285; J0696; J1885; J1953; J2060